=== PATIENT | female | born 1995 | race Caucasian/White ===

== ENCOUNTER 2021-04-28 14:08 | Emergency (ER) | payer OTHER ==
[~2021-04-28] VITALS: Ht 167.6 cm; Wt 79.8 kg
[2021-04-28 14:19] VITALS: BP 124/77
[2021-04-28 15:12] LABS: BASOPHILS % (AUTO) 0.3 % (0.0-2.0); EOSINOPHILS # (AUTO) 0.1 K/uL (0-0.4); EOSINOPHILS % (AUTO) 0.4 % (0.0-4.0); HEMATOCRIT 38.9 % (36-48); HEMOGLOBIN 12.9 g/dL (12.0-16.0); LYMPHOCYTES # (AUTO) 1.8 K/uL (2.5-16.5); LYMPHOCYTES % (AUTO) 14.6 % (20.5-51.1); MEAN CORPUSCULAR HEMOGLOBIN 29 pg (27-31); MEAN CORPUSCULAR HGB CONC 33 g/dL (33-37); MEAN CORPUSCULAR VOLUME 88.3 fL (80-94); MONOCYTES # (AUTO) 0.6 K/uL (0.8-1.0); MONOCYTES % (AUTO) 5.2 % (1.7-9.3); NEUTROPHILS # (AUTO) 9.9 K/uL (1.8-7.7); NEUTROPHILS % (AUTO) 79.5 % (42.2-75.2); PLATELET COUNT (AUTO) 308 K/uL (140-450); RED BLOOD CELL COUNT(AUTO) 4.41 MIL/uL (4.20-5.40); RED CELL DISTRIBUTION WIDTH 13.7 % (11.6-13.7); WHITE BLOOD COUNT (AUTO) 12.5 K/uL (4.8-10.8)
[2021-04-28 15:34] LABS: ANION GAP 13.3 (8-16); CARBON DIOXIDE 25.6 mmol/L (21-32); CREATININE 0.7 mg/dL (0.6-1.3); POTASSIUM 3.9 mmol/L (3.5-5.1)
[2021-04-28 15:50] LABS: FREE T4 (FREE THYROXINE) 0.92 ng/dL (0.76-1.46); THYROID STIMULATING HORMONE 0.94 uIU/mL (0.34-3.74)
[2021-04-28 16:37] VITALS: BP 106/66
== END 2021-04-28 16:37 | disposition home or self-care (01) ==
LOC: MED 14:08
DX: F41.9 Anxiety disorder, unspecified (principal); R00.2 Palpitations; R20.0 Anesthesia of skin; T48.6X5A Adverse effect of antiasthmatics, initial encounter; Z33.1 Pregnant state, incidental; J45.909 Unspecified asthma, uncomplicated; Y92.89 Other specified places as the place of occurrence of the external cause
CPT/HCPCS: 36415; 80048; 81002; 81025; 84439; 84443; 84484; 84702; 85025; 86592; 93005; 99284

== ENCOUNTER 2021-09-03 08:22 | Emergency (ER) | payer OTHER ==
[~2021-09-03] VITALS: Ht 167.6 cm; Wt 81.6 kg
[2021-09-03 08:22] VITALS: BP 112/66
--- NOTE | 2021-09-03 08:23 | NUR ---
Dr. Manning is evaluating patient at bedside
--- NOTE | 2021-09-03 08:23 | NUR ---
BIBA to bed 09.
--- NOTE | 2021-09-03 08:30 | NUR ---
26 y/o BIBA from home c/o heart palpitations since 729 + nausea, left arm tingling 10 minutes prior to EMS arrival. Pt A&Ox4, ambulatory, 6 months , reports symptoms self resolved on it's own, states "My blood pressure was 138/80 before coming and I felt worked up." Patient denies dysuria, fever, chills, abdominal pain, dizziness, headache, sick household members. Denies medications prior to arrival. . SpO2 99% on room air; lung sounds CTA. Cap refill <2 seconds. Skin pink/warm/dry. Bed locked in lowest position, side rails x 1. PMH: anemia Meds: , iron NKDA Sx: Denies
--- NOTE | 2021-09-03 08:37 | NUR ---
EMT at bedside for EKG
[2021-09-03 09:15] VITALS: BP 120/60
--- NOTE | 2021-09-03 09:15 | NUR ---
Patient discharged with v/s stable. Written and verbal after care instructions given and explained. Patient verbalized understanding. Ambulatory with steady gait. All questions addressed prior to discharge. Advised to follow up with PMD.
== END 2021-09-03 09:15 | disposition home or self-care (01) ==
LOC: MED 08:22
DX: O26.892 Other specified pregnancy related conditions, second trimester (principal); R00.2 Palpitations; J45.909 Unspecified asthma, uncomplicated; D64.9 Anemia, unspecified; Z3A.24 24 weeks gestation of pregnancy
CPT/HCPCS: 93005; 99284